=== PATIENT | female | born 1945 | race Caucasian/White ===

== ENCOUNTER → 2021-03-23 | Outpatient (CLI) | payer MEDICARE ==
--- NOTE | 2021-03-23 12:31 | KCIC ---
PQRS Compliance Statement: One or more of the following individualized dose reduction techniques were utilized for this examinat ion: 1. Automated exposure control 2. Adjustment of the mA and/or kV according to patient size 3. Use of iterative reconstruction technique CT THORAX WO 03/23/2021 10:44 AM Indication: Chronic cough. Smoker for 53 years, quit 2 months ago. COMPARISON: None available. TECHNIQUE: Multiple axial CT images of the chest were obtained without intravenous contrast. Coronal and sagittal reformats are provided. FINDINGS: There is mild centrilobular pulmonary emphysema. 2 mm solid noncalcified pulmonary nodule identified in the right upper lobe (series 3, image 34).. No pleural effusions, pulmonary vascular congestion or pneumothorax. Bandlike densities identified in the inferior lingula and right middle lobe suggests s ubsegmental atelectasis versus scarring. Central airways are clear. Mild bronchial wall thickening co mpatible with nonspecific bronchitis. Thyroid gland is normal in appearance. Heart size is within nor mal limits. Three-vessel coronary artery vascular calcifications are present. Ascending thoracic aort a measures up to 3.9 cm. There is mild calcified plaque involving the thoracic aorta. No pathological ly enlarged lymph nodes within the limitations of a noncontrast examination no suspicious abnormality within the visualized portions of the upper abdomen. No significant osseous abnormality is identifie d. IMPRESSION: 1. Mild centrilobular pulmonary emphysema. 2. 2 mm solid noncalcified pulmonary nodule identified in the right upper lobe. Fleischner guidelines for incidentally detected pulmonary nodules suggests no routine follow-up for low risk patients and optional CT at 12 months for high risk patients with solid noncalcified pulmonary nodules less than 6 mm in size. 3. Three-vessel coronary artery vascular calcifications. 4. Borderline ectasia of the ascending thoracic measuring 3.9 cm. Electronically signed by: Louise Prieto MD (03/23/2021 12:29 PM) [id number]
== END ==
LOC: KCIC CT 10:42
PROVIDERS: ATTEND Family Medicine
DX: J43.2 Centrilobular emphysema (principal); R91.1 Solitary pulmonary nodule; F17.210 Nicotine dependence, cigarettes, uncomplicated
CPT/HCPCS: 71250

== ENCOUNTER → 2021-07-16 | Outpatient (CLI) | payer MEDICARE ==
--- NOTE | 2021-07-16 10:40 | KCIC ---
EXAM: MRI LUMBAR SPINE WITHOUT CONTRAST. HISTORY: Low back pain. Right lower extremity radiculopathy and weakness. TECHNIQUE: Magnetic resonance images of the lumbar spine were obtained without contrast. COMPARISON: None. FINDINGS: There is a mild lumbar levoscoliosis. No fractures are identified. Degenerative disc diseas e is severe at L2-3, with advanced degenerative endplate changes. It is mild at L1-2. There is disc d esiccation from L3 through S1. The conus is at L1 and appears normal. At T10-11, there is moderate ligament flavum hypertrophy, impinging on the central canal and both emmanuel ral foramina mildly. At T12-L1, there is a small posterior disc bulge. There is no stenosis. At L1-2, there is a small posterior disc-osteophyte complex. There is mild bilateral foraminal narrow ing. At L2-3, there is a moderate posterior disc-osteophyte complex with a superimposed small central prot rusion. Central canal stenosis is mild. Neural foraminal stenosis is moderate on the left and mild on the right. At L3-4, there is a small posterior disc bulge. Facet and ligamentum flavum hypertrophy is mild. Neur al foraminal stenosis is mild bilaterally. There is at least mild right lateral recess stenosis. At L4-5, there is a small posterior disc bulge. Facet and ligamentum flavum hypertrophy is mild. Neur al foraminal stenosis is mild on the left and moderate on the right. There is a small central annular tear. At L5-S1, there is a small posterior disc bulge. Neural foraminal stenosis is mild on the right. IMPRESSION: 1. Severe degenerative disc disease at L2-3. A moderate posterior disc-osteophyte complex with a supe rimposed central protrusion results in mild central canal stenosis at this level. Neural foraminal st enosis is moderate on the left and mild on the right. 2. Additional multilevel bilateral neural foraminal stenosis is mild to moderate as above. Electronically signed by: Sina Davis MD (07/16/2021 10:37 AM) [id number]
== END ==
LOC: KCIC MRI 09:16
PROVIDERS: ATTEND Nurse Practitioner Family
DX: M51.17 Intervertebral disc disorders with radiculopathy, lumbosacral region (principal); M51.15 Intervertebral disc disorders with radiculopathy, thoracolumbar region; M48.07 Spinal stenosis, lumbosacral region; M25.78 Osteophyte, vertebrae
CPT/HCPCS: 72148

== ENCOUNTER → 2021-09-04 | Outpatient (CLI) | payer MEDICARE ==
[~2021-09-04] MED LIST: GABA300C18 PO; IOHEXOL 180 MG/ML 10 ML VIAL. ONE; methylPREDNISolone ACETATE 40 MG/ML VIAL. ONE; methylPREDNISolone ACETATE 80 MG/ML VIAL. ONE
--- NOTE | 2021-09-04 16:16 | PDOC1 ---
INITIAL PAIN CONSULT DATE OF SERVICE: DOS: DATE: 09/04/21 TIME: 16:09 CHIEF COMPLAINT: Chief Complaint: Low back and right leg and left lower extremity pain HISTORY OF PRESENT ILLNESS: 76-year-old female presents with history of pain low back bilateral lower extremities right greater than left posterior gluteus posterior lateral thigh lateral anterior thigh anteromedial thighs to the knees in the medial upper leg more on the right than the left and present bilaterally. Patient reports it started about December of this year gradually increasing not the result of any specific injury that she is aware of. Patient reports is worse with walking standing changing positions better with sitting or laying down generally does not awaken her from sleep at night but lately has patient reports no difficulty with bowel or bladder control and it does affect her ability to walk and she is using a cane which she has in her right hand with her today. Patient reports the pain in the back is sharp and stabbing throbbing shooting in the right lower extremity as well as the left change during the day with activity numbness and tingling in the leg also for sensation of cold and burning alternating and burning in the mid back as well worse in the evenings and worse at night patient has had physical therapy and water aerobics which made the pain worse also taking Aleve which does decrease the pain by about 20%. Patient rates her disab ility rating 0-10 10 being the worst is 8 with family home responsibilities and recreation and occupation 6 with social activity and self-care and 3 with life support activities. Patient reports no loss of motor function is significant fatigability especially the right lower extremity with ambulation. Patient did have an MRI scan of the lumbar spine showing severe degenerative disc disease at L2-3 with moderate posterior disc osteophyte complex and superimposed central protrusion resulting mild central canal stenosis at this level L4-5 shows small posterior disc bulge as is L3-4 L4-5 also shows neuroforaminal stenosis mild on the left and moderate on the right with a small central annular tear. L3-4 shows mild right lateral recess stenosis. PAST MEDICAL HISTORY: PMH: Arthritis, history of cigarette smoking, quit 9 months ago PREVIOUS SURGERIES: Past Surgical Hx: Hysterectomy, breast biopsy CURRENT MEDICATIONS: Current Meds: Active Scripts Medications Dose Route/Sig Max Daily Dose Days Date Category Gabapentin (Gabapentin) 300 Mg Capsule 300 Mg PO BID 09/04/21 Reported ALLERGIES; Allergies: Coded Allergies: Penicillins (Verified Allergy, Unknown, Shortness of Air, 09/04/21) FAMILY HISTORY: Family Hx: Diabetes in patient's brother. SOCIAL HISTORY: Social Hx: Patient is nondrug alcohol quit smoking 9 months ago does not use any illegal illicit recreational drugs is lives with her spouse and lives locally in [facility] REVIEW OF SYSTEMS: ROS: Positive for those items mentioned in history of present illness, all systems are reviewed, otherwise negative ,and are complete full and well-documented on patient's chart. PHYSICAL EXAM: VS: Blood pressure is 165/85 pulse 84 respirations 18 temperature is 98.7 F height 5 feet 2 inches weight is 1 7 8 pounds. PE: PHYSICAL EXAMINATION: GENERAL: The patient is awake, alert, oriented, appropriate, very pleasant in demeanor HEENT: Shows normocephalic, atraumatic. Extraocular movements are intact and symmetrical. Oral cavity: Mucous membranes moist and pink. Dentition is intact. NECK: Shows anterior throat supple without palpable lymphadenopathy noted. Swallow reflex symmetrical. CHEST: Shows normal on inspection. Breath sounds are clear bilaterally, distant but no rales rhonchi wheezes auscultated. HEART: Shows S1, S2 clear. No murmurs auscultated. ABDOMEN: Soft, nontender, nondistended, obese. No palpable organomegaly is noted. BACK: Shows spine grossly in the midline. Normal-appearing cervical lordotic curvature. There is increased thoracic kyphosis, some flattening of the lumbar lordotic curvature. Lumbar paraspinous muscles show symmetrical on inspection, on palpation shows some moderate tenderness diffusely throughout the upper, mi ddle and lower distribution of the paraspinous muscles bilaterally and also into the lower thoracic paraspinous musculature, firm and tender, but without specific trigger points, without radiation of pain. The patient has good rotational motion of the lumbar spine, both laterally as well as extension and flexion without significant difficulty. EXTREMITIES: Lower extremities show deep tendon reflexes 2+ in the patellar and tendo calcaneus tendons. Motor exam is 4 on a scale of 5 with right dorsiflexion, extension, quadriceps and hamstring flexion and 5/5 on the left. Peripheral pulses are 1 posterior tibial. No peripheral edema is noted bilaterally. Lower extremities are warm and dry to touch, equal in color and appearance. Straight leg raise noted to be positive on the right about 45 degrees, left side is negative. Gaenslen's and Cooper's maneuvers are negative bilaterally. The patient is able to stand, has difficulty standing with all of her weight on her right foot and with difficulty with standing on her toes, walks with a slight favoring gait does appear to favor the right lower extremity fairly significantly and is using her cane in her left hand. SKIN: Shows warm and dry, good turgor. No edema. No sores, rashes or bruising throughout. IMPRESSION: Impression: 76-year-old female with approximate 8-month history of low back right lower ex tremity greater than left lower extremity pain. MRI scan lumbar spine as noted Arthritis Plan: Options were discussed with patient, including continued physical therapies medication management interventional techniques. Patient would like to pursue interventional techniques. We will proceed with a lumbar epidural steroid injection today with fluoroscopic guidance. Risks were discussed including but not limited to: Bleeding, infection, possibility of epidural hematoma and subsequent neurological compromise, dural puncture, headaches, spinal cord and/or nerve damage, side effects of steroid medication, and poor results regarding pain control. Patient understands and wished to proceed. Patient will return to clinic in approximate 2 weeks for follow-up, was counseled as return appointment, activity level, and side effect to be aware of. Procedure is lumbar epidural steroid injection under local anesthetic using sterile prep and drape at the L4-5 level using C-arm fluoroscopic guidance in both AP and lateral views medications injected is 120 mg Depo-Medrol +10mL preservative-free normal saline and 2 mL contrast- condition at discharge is stable patient tolerated procedure well had no complications. KOFFI ARAGON MD Sep 04, 2021 16:16
--- NOTE | 2021-09-04 16:17 | PDOC4 ---
Procedure Note: ICD 10 Code: ICD 10 Code: M54.16 M 48.06 M51.36 Procedure Note: Patient was consented for lumbar epidural steroid injection with fluoroscopic guidance. Risks were discussed including but not limited to: Bleeding, infection, possibility of epidural hematoma and subsequent neurological compromise, dural puncture, headaches, spinal cord and/or nerve damage, side effects of steroid medication, and poor results regarding pain control. Patient understands and wished to proceed. Procedure is lumbar epidural steroid injection under local anesthetic using yrn rile prep and drape at the L4-5 level using C-arm fluoroscopic guidance in both AP and lateral views medications injected is 120 mg Depo-Medrol +10mL preservative-free normal saline and 2 mL contrast- condition at discharge is stable patient tolerated procedure well had no complications. KOFFI ARAGON MD Sep 04, 2021 16:17
== END | disposition home or self-care (01) ==
LOC: PNCL 14:11
PROVIDERS: ATTEND Anesthesiology
DX: M51.16 Intervertebral disc disorders with radiculopathy, lumbar region (principal); M48.061 Spinal stenosis, lumbar region without neurogenic claudication; M79.605 Pain in left leg; M79.604 Pain in right leg; M19.90 Unspecified osteoarthritis, unspecified site; Z87.891 Personal history of nicotine dependence; Z79.899 Other long term (current) drug therapy; Z88.0 Allergy status to penicillin; Z83.3 Family history of diabetes mellitus; Z90.710 Acquired absence of both cervix and uterus; Z98.890 Other specified postprocedural states
CPT/HCPCS: 62323; J1030; J1040; Q9965

== ENCOUNTER → 2021-09-18 | Outpatient (CLI) | payer MEDICARE ==
--- NOTE | 2021-09-18 12:05 | PDOC ---
Progress Note - Pain Clinic Date of Service: DOS: DATE: 09/18/21 TIME: 12:02 Diagnosis: Dx: Lumbar radiculopathy with lumbar degenerative disease and lumbar spinal stenosis History or Present Illness: HPI: 76-year-old female returns for follow-up status post lumbar epidural steroid injection x1. Patient reports about 40% improvement overall with pain still in the low back and the right lower extremity but much better than it was patient reports occasional pain in the feet now and some cramping which is new in her left calf which was not present previously patient reports he is doing some stretching but that the cramping is still awaken her from sleep since the last visit patient reports the pain in the back and the right leg is sharp and aching tingling burning cramping mostly the posterior gluteus lateral thigh anterior thigh medial thigh on the right side and then in the left calf patient reports is burning and aching as well as cramping patient reports it is an 8 on scale 10 is worse over the past week 6 on average 6 its least and is a 6 today patient reports no bowel or bladder incontinence patient reports he was doing much better initially with walking doing household activities travel with greater ease and comfort and better with standing but now the pain is returning patient reports it wakes him sleep now about once every 5-6 hours only. Physical Exam: VS: Blood pressure is 163/87 pulse 83 respirations 18 temperature 90.9 F height is 5 feet 2 inches weight is 196 pounds PE: PHYSICAL EXAMINATION: GENERAL: The patient is awake, alert, oriented, appropriate, very pleasant in demeanor HEENT: Shows normocephalic, atraumatic. Extraocular movements are intact and symmetrical. Oral cavity: Mucous membranes moist and pink. NECK: Shows anterior throat supple without palpable lymphadenopathy noted. Swallow reflex symmetrical. CHEST: Shows normal on inspection. Breath sounds are clear bilaterally, distant no rales rhonchi wheezes auscultated. HEART: Shows S1, S2 clear. No murmurs auscultated. ABDOMEN: Soft, nontender, nondistended. No palpable organomegaly is noted. No rebound or guarding demonstrated. BACK: Shows spine grossly in the midline. Normal-appearing cervical lordotic curvature. There is slightly increased thoracic kyphosis, some minor flattening of the lumbar lordotic curvature. Lumbar paraspinous muscles show symmetrical on inspection, on palpation shows some moderate tenderness diffusely throughout the upper, middle and lower distribution of the paraspinous muscles without specific trigger points, without radiation of pain. The patient has good rotational motion of the lumbar spine, both laterally as well as extension and flexion without significant difficulty. EXTREMITIES: Lower extremities show deep tendon reflexes 2+ in the patellar and tendo calcaneus tendons. Motor exam is 4 on a scale of 5 with right dorsiflexion, extension, quadriceps and hamstring flexion and 5/5 on the left. Peripheral pulses are 1+ posterior tibial. No peripheral edema is noted bilaterally. Lower extremities are warm and dry to touch, equal in color and appearance. SKIN: Shows warm and dry, good turgor. No edema. No sores, rashes or bruising throughout. Procedure: Procedure: Options were discussed with the patient. Patient's chart was reviewed as her current medication regimen updated current review of systems updated today as well. We will proceed with a lumbar epidural steroid injection today with fluoroscopic guidance. Risks were discussed including but not limited to: Bleeding, infection, possibility of epidural hematoma and subsequent neurological compromise, dural puncture, headaches, spinal cord and/or nerve damage, side effects of steroid medication, and poor results regarding pain control. Patient understands and wished to proceed. Patient will return to clinic in approximate 2 weeks for follow-up, was counseled return appointment, activity level, and side effect to be aware of. Medication Injected: Med Injected: Procedure is lumbar epidural steroid injection under local anesthetic using sterile prep and drape at the L4-5 level using C-arm fluoroscopic guidance in both AP and lateral views medications injected is 120 mg Depo-Medrol +10mL preservative-free normal saline and 2 mL contrast- condition at discharge is stable patient tolerated procedure well had no complications. Condition at Discharge: Condition at Discharge: Condition at discharge is stable, patient tolerated the procedure well and had no complications. KOFFI ARAGON MD Sep 18, 2021 12:05
--- NOTE | 2021-09-18 12:06 | PDOC4 ---
Procedure Note: ICD 10 Code: ICD 10 Code: M54.16 M51.36 M4 8.06 Procedure Note: Patient was consented for lumbar epidural steroid injection with fluoroscopic guidance. Risks were discussed including but not limited to: Bleeding, infection, possibility of epidural hematoma and subsequent neurological compromise, dural puncture, headaches, spinal cord and/or nerve damage, side effects of steroid medication, and poor results regarding pain control. Patient understands and wished to proceed. Procedure is lumbar epidural steroid injection under local anesthetic using yrn rile prep and drape at the L4-5 level using C-arm fluoroscopic guidance in both AP and lateral views medications injected is 120 mg Depo-Medrol +10mL preservative-free normal saline and 2 mL contrast- condition at discharge is stable patient tolerated procedure well had no complications. KOFFI ARAGON MD Sep 18, 2021 12:06
== END | disposition home or self-care (01) ==
LOC: PNCL 10:37
PROVIDERS: ATTEND Anesthesiology
DX: M51.16 Intervertebral disc disorders with radiculopathy, lumbar region (principal); M48.061 Spinal stenosis, lumbar region without neurogenic claudication; Z79.899 Other long term (current) drug therapy; Z88.0 Allergy status to penicillin
CPT/HCPCS: 62323; J1030; J1040; Q9965

== ENCOUNTER → 2021-11-06 | Outpatient (CLI) | payer MEDICARE ==
[~2021-11-06] MED LIST changes: +NAPR220C4 PO; -methylPREDNISolone ACETATE 40 MG/ML VIAL. ONE; -methylPREDNISolone ACETATE 80 MG/ML VIAL. ONE
--- NOTE | 2021-11-06 11:32 | PDOC ---
Progress Note - Pain Clinic Date of Service: DOS: DATE: 11/06/21 TIME: 11:28 Diagnosis: Dx: Lumbar radiculopathy with lumbar degenerative disease and lumbar spinal stenosis History or Present Illness: HPI: 76-year-old female returns for follow-up status post lumbar epidural steroid injection on September 18, 2021. Patient reports did very well about 75% improvement overall with pain returning but only moderately into the low back and right lower extremity posterior gluteus posterior thigh lateral thigh anterior thigh medial lower leg patient reports much better than it was given increase in distance walking with greater ability also doing household activities try with greater ease and comfort reports that every day is different but most days are better than not patient rates her pain as a 5 on a scale of 10 is worst average and a 4 to [place] is a 4 today. Patient is reporting today significant pain in the left knee with history of significant advanced osteoarthritis of the left knee which is becoming more painful with walking and standing and changing positions especially putting all the weight on her left leg such as climbing stairs or steps. Patient does have an orthopedic surgeon who is following this. We discussed oral analgesics and patient is taking extra strength Tylenol 2 tablets up to 4-5 times daily we discussed that this is too high of an amount to be taking on a daily basis and she is unable to take ibuprofen we recommend naproxen in its place as long as her stomach is not upset from it like it is with ibuprofen. Patient will try this and see if this manages the pain better in her knee. Physical Exam: VS: Blood pressure is 139/84 pulse 90 respirations 18 temperature 98.5 F weight is 187 pounds. PE: PHYSICAL EXAMINATION: GENERAL: The patient is awake, alert, oriented, appropriate, very pleasant in demeanor HEENT: Shows normocephalic, atraumatic. Extraocular movements are intact and symmetrical. Oral cavity: Mucous membranes moist and pink. NECK: Shows anterior throat supple without palpable lymphadenopathy noted. Swallow reflex symmetrical. CHEST: Shows normal on inspection. Breath sounds are clear bilaterally, distant but no rales or rhonchi auscultated. HEART: Shows S1, S2 clear. No murmurs auscultated. ABDOMEN: Soft, nontender, nondistended. No palpable organomegaly is noted. BACK: Shows spine grossly in the midline. Normal-appearing cervical lordotic curvature. There is mildly increased thoracic kyphosis, some flattening of the lumbar lordotic curvature. Lumbar paraspinous muscles show symmetrical on inspection, on palpation shows some moderate tenderness diffusely throughout the upper, middle and lower distribution of the paraspinous muscles, but without specific trigger points, without radiation of pain. The patient has good rotational motion of the lumbar spine, both laterally as well as extension and flexion without significant difficulty. No tenderness over the spinous processes, sacrum or sacroiliac regions. EXTREMITIES: Lower extremities show deep tendon reflexes 2 in the patellar and tendo calcaneus tendons. Motor exam is 4 on a scale of 5 with right dorsifle xion, extension, quadriceps and hamstring flexion and 5/5 on the left. Peripheral pulses are 1+ posterior tibial. No peripheral edema is noted bilaterally. Lower extremities are warm and dry. SKIN: Shows warm and dry, good turgor. No edema. No sores, rashes or bruising throughout. Procedure: Procedure: Options were discussed with patient. Patient's old chart was reviewed as her current medication regimen updated current review of systems updated today as well. We will proceed with a lumbar epidural steroid injection today with fluoroscopic guidance. Risks were discussed including but not limited to: Bleeding, infection, possibility of epidural hematoma and subsequent neurological compromise, dural puncture, headaches, spinal cord and/or nerve damage, side effects of steroid medication, and poor results regarding pain control. Patient understands and wished to proceed. Patient will return to clinic in approximately 2 weeks for follow-up, was counseled as to return ted ointment, activity level, and side effect to be aware of. Medication Injected: Med Injected: Procedure is lumbar epidural steroid injection under local anesthetic using sterile prep and drape at the L4-5 level using C-arm fluoroscopic guidance in both AP and lateral views medications injected is 120 mg Depo-Medrol +10mL preservative-free normal saline and 2 mL contrast- condition at discharge is stable patient tolerated procedure well had no complications. Condition at Discharge: Condition at Discharge: Condition at discharge stable, patient tolerated the procedure well and had no complications. KOFFI ARAGON MD Nov 06, 2021 11:32
--- NOTE | 2021-11-06 11:33 | PDOC4 ---
Procedure Note: ICD 10 Code: ICD 10 Code: M54.16 M51.36 M 48.06 Procedure Note: Patient was consented for lumbar epidural steroid injection with fluoroscopic guidance. Risks were discussed including but not limited to: Bleeding, infection, possibility of epidural hematoma and subsequent neurological compromise, dural puncture, headaches, spinal cord and/or nerve damage, side effects of steroid medication, and poor results regarding pain control. Patient understands and wished to proceed. Procedure is lumbar epidural steroid injection under local anesthetic using yrn rile prep and drape at the L4-5 level using C-arm fluoroscopic guidance in both AP and lateral views medications injected is 120 mg Depo-Medrol +10mL preservative-free normal saline and 2 mL contrast- condition at discharge is stable patient tolerated procedure well had no complications. KOFFI ARAGON MD Nov 06, 2021 11:33
== END | disposition home or self-care (01) ==
LOC: PNCL 10:42
PROVIDERS: ATTEND Anesthesiology
DX: M51.16 Intervertebral disc disorders with radiculopathy, lumbar region (principal); M48.061 Spinal stenosis, lumbar region without neurogenic claudication; Z79.899 Other long term (current) drug therapy; Z88.0 Allergy status to penicillin
CPT/HCPCS: 62323; Q9965; 64483

== ENCOUNTER → 2021-12-13 | Outpatient (CLI) | payer MEDICARE ==
[~2021-12-13] MED LIST changes: -IOHEXOL 180 MG/ML 10 ML VIAL. ONE; +REGADENOSON 0.4 MG/5 ML DISP.SYRIN. IV ONE
--- NOTE | 2021-12-13 12:53 | CARD ---
MR#: [id number] Date of Study: 12/13/2021 Ordering Physician: MIKA GONSALES, Referring Physician: Jack MALHOTRA: [facility] APPROVED REPORT EXAM: Two-dimensional and M-mode echocardiogram with Doppler and color Doppler. Other Information Quality : AverageHR: 69bpm Rhythm : NSR INDICATION Pre-Op RISK FACTORS Obesity Smoking 2D DIMENSIONS Left Atrium(2D)3.4 (1.6-4.0cm)IVSd0.8 (0.7-1.1cm) Aortic Root(2D)3.3 (2.0-3.7cm)LVDd4.8 (3.9-5.9cm) LVOT Diameter1.8 (1.8-2.4cm)PWd0.9 (0.7-1.1cm) LA Chwcwt60 (18-58mL)LVDs2.5 (2.5-4.0cm) FS (%) 48.4 %SV87.0 ml LVEF(%)79.7 (>50%) Aortic Valve AoV Peak Lasha.233.6cm/sAoV VTI44.4cm AO Peak GR.21.8mmHgLVOT Peak Lasha.123.4cm/s AO Mean GR.10mmHgAVA (VMAX)1.31cm2 Mitral Valve MV E Hwqzpyce46.1cm/sMV E Peak Gr.5mmHg MV DECEL [id number] A Msuywycv10.3cm/s MV E Mean Gr.1mmHgE/A Ratio0.8 Pulmonary Valve PV Peak Ktuzhhgp07.5cm/s Tricuspid Valve TR P. Hqnmzxos110qg/sTR Peak Gr.22mmHg Pulmonary Vein S1 Sdaxgcnn12.7cm/sD2 Rsacabkn65.7cm/s LEFT VENTRICLE The left ventricle is normal size. There is normal left ventricular wall thickness. The left ventricu lar systolic function is normal and the ejection fraction is within normal range. EF 55% There is nor mal LV segmental wall motion. Transmitral Doppler flow pattern is Grade I-abnormal relaxation pattern . No left ventricle thrombus noted on this study. There is no ventricular septal defect visualized. T here is no left ventricular aneurysm. There is no mass noted in the left ventricle. RIGHT VENTRICLE The right ventricle is normal size. There is normal right ventricular wall thickness. The right ventr icular systolic function is normal. ATRIA The left atrium size is normal. The right atrium size is normal. The interatrial septum is intact wit h no evidence for an atrial septal defect or patent foramen ovale as noted on 2-D or Doppler imaging. AORTIC VALVE The aortic valve is calcified with restricted leaflet motion. Doppler and Color Flow revealed no sign ificant aortic regurgitation. There is no significant aortic valvular stenosis. Calculated aortic halina ve area is 1.5 cm2 with maximum pressure gradient of 21 mmHg and mean pressure gradient of 10 mmHg. T here is no aortic valvular vegetation. MITRAL VALVE The mitral valve is normal in structure and function. There is no evidence of mitral valve prolapse. There is no mitral valve stenosis. Doppler and Color Flow revealed no mitral valve regurgitation note d. TRICUSPID VALVE The tricuspid valve is normal in structure and function. Doppler and Color Flow revealed trace tricus pid regurgitation. The PA pressure was estimated at 27 mmHg. There is no tricuspid valve prolapse or vegetation. There is no tricuspid valve stenosis. PULMONIC VALVE Doppler and Color Flow revealed no pulmonic valvular regurgitation. There is no pulmonic valvular yrn nosis. GREAT VESSELS The aortic root is normal in size. The ascending aorta is normal in size. The IVC is normal in size a nd collapses >50% with inspiration. PERICARDIAL EFFUSION There is no pleural effusion. There is no evidence of significant pericardial effusion. Critical Notification Critical Value: No <Conclusion> The left ventricular systolic function is normal and the ejection fraction is within normal range. EF 55% There is normal LV segmental wall motion. The aortic valve is calcified with restricted leaflet motion. Calculated aortic valve area is 1.5 cm2 with maximum pressure gradient of 21 mmHg and mean pressure g radient of 10 mmHg. Signed by : Crow De La Crzu, Electronically Approved : 12/13/2021 12:52:43
--- NOTE | 2021-12-13 13:16 | RAD ---
MR#: [id number] Date of Study: 12/13/2021 Ordering Physician: MIKA GONSALES, Referring Physician: NAYE MALHOTRA Tech: RT Sampson (R) (N) APPROVED REPORT Test Type: Pharmacological Stress Nurse/Tech: MELANIE PALOMINO Test Indications: PRE-OP KNEE SURGERY Cardiac History: SEE EMR Medications: SEE EMR Medical History: SEE EMR Resting ECG: SR W/ BBB Resting Heart Rate: 72 bpm Resting Blood Pressure: 133/69mmHg Pretest Chest Pain: No chest pain Nurse/Tech Notes S1,S2, LUNGS CTA, DENIED CP OR SOA. VSS. Consent: The procedure was explained to the patient in lay terms. Informed consent was witnessed. Basil eout was entered into [employer]. History and Stress Test performed by ROSANNA Abbott, SHANTANU (R) (N) Pharm. Details Pharmacologic stress testing was performed using 0.4mg per 5ml of regadenoson given intravenously ove r 7-10 seconds. Stress Symptoms PT DENIED ANY SYMPTOMS DURING TESTING. VSS. PT TOLERATED WELL. POST EXERCISE Reason for Termination: Infusion complete Max HR: 92 bpm Max Blood Pressure: 126/56mmHg Blood Pressure response to exercise: Normal blood pressure response during stress. Heart Rate response to exercise: WNL Chest Pain: No. Arrhythmia: . OCCASSIONAL PVC NOTED, NO OTHER SIGNIFICANT CHANGES FROM BASELINE EKG. INTERPRETATION Stress EKG Conclusion: No evidence of stress induced EKG changes. Imaging Protocol IMAGE PROTOCOL: Rest Tc-99m/stress Tc-99m 1 day Rest: Stress: Viability: Radiopharm.Tc99m YhhnqseklKi99l Sestamibi Qbxk83dEl 33mCi Duration 15min. 10min. Img Date 12/13/2021 12/13/2021 Inj-Img Wrgc60inj. 60min. Rest Admin Site:IV - Right HandAdministrator:ROSANNA Abbott, SHANTANU (R)(N) Stress Admin Site: IV - Right HandAdministrator: ROSANNA Abbott ARRT (Margo)(N) STRESS DATA End Diast. Vol.69.0mlAv. Heart Rate85.0bpm End Syst. Vol.17.0mlCO Index BSA0.0L/min Myocardial Jumw752.0gEject. Uojccsha94.0% Stress Rates Pk. Fill Rate3.60EDV/secLVtime Pk. Fill 167.68msec Pk. Empty Rate4.35ESV/secLVtime Pk. Lpmyu976.20msec /3 Pk. Fill1.00EDV/sec Stress Scores Regional WT0.00Summed WT0.00 Regional WM0.00Summed WM2.00 The rest and stress images show normal perfusion, normal contraction and thickening. LV Perf. Quant 17 Seg. SSS1.00 17 Seg. SRS1.00 17 Seg. SDS1.00 Stress Defect Extent (% LAD)0.00Rest Defect Extent (% LAD)0.00Rev. Defect Extent (% LAD)0.00 Stress Defect Extent (% LCX) 1.30Rest Defect Extent (% LCX)7.50Rev. Defect Extent (% LCX)0.00 Stress Defect Extent (% RCA)0.00Rest Defect Extent (% RCA)0.00Rev. Defect Extent (% RCA)0.00 Stress Defect Extent (% BLESSING)0.20Rest Defect Extent (% BLESSING)1.30Rev. Defect Extent (% BLESSING)0.00 Other Information Quality:Good Risk Assessment: Low Risk Conclusion 1. No evidence of EKG changes with stress testing. 2. Normal perfusion at stress/rest. 3. Low risk study. 4. EF > 60%. Signed by : Crow De La Cruz, Electronically Approved : 12/13/2021 13:15:21
== END ==
LOC: ECHO 07:34
PROVIDERS: ATTEND Internal Medicine Cardiovascular Disease
DX: Z01.810 Encounter for preprocedural cardiovascular examination (principal); I35.1 Nonrheumatic aortic (valve) insufficiency
CPT/HCPCS: 78452; 93017; 93306; A9500; J2785; C8929